=== PATIENT | female | born 1980 | race Caucasian/White ===

== ENCOUNTER 2021-02-16 08:57 | Emergency (ER) | payer SELFPAY ==
--- NOTE | ~2021-02-16 | CT_ITS ---
EXAMINATION: CT brain wo con INDICATION: Sudden onset headache, dizziness, vomiting COMPARISON: None TECHNIQUE: Standard unenhanced head CT. The dose-length product (DLP) was 605.33 mGy-cm. The mA was a djusted according to patient size. Iterative reconstruction technique was employed. FINDINGS: There is no intracranial hemorrhage, acute infarction, or abnormal mass lesion. The ventric les are normal. There is no abnormal mass effect or midline shift. The humphrey-white matter differentiat ion is normal. The basal cisterns are patent. The orbits are normal. There is mild mucosal thickening of the paranasal sinuses. IMPRESSION: 1. No acute intracranial abnormality. Reviewed, dictated and finalized at location A.
[2021-02-16 09:25] VITALS: BP 102/61; PULSE 89; RESP 16; TEMP 36.7; O2SAT 98
--- NOTE | 2021-02-16 10:09 | ED.GENADULT ---
HPI - General Adult General Chief complaint: Headache Stated complaint: migraine Source: patient Mode of arrival: ambulatory History of Present Illness HPI narrative: Yuki is a 41F with a PMH of HTN, HLD, migraine headaches, unknown cardiac arrhythmia,and mitral valve prolapse that presented to the ER with a bilateral pounding headache. It woke her up 2 mornings ago. The pain was maximal upon awakening. it is associated with nausea and vomiting. No hearing or vision changes. No confusion reported. No neck pain reported. No fevers or chills. Related Data Home Medications Medication Instructions Recorded Confirmed amlodipine 5 mg PO DAILY 02/16/21 02/16/21 Allergies Allergy/AdvReac Type Severity Reaction Status Date / Time amoxicillin [From Augmentin] Allergy Mild Hives Verified 02/16/21 09:39 azithromycin [From Zithromax] Allergy Mild Nausea and Verified 02/16/21 09:39 Vomiting clavulanic acid Allergy Mild Hives Verified 02/16/21 09:39 [From Augmentin] sulfamethoxazole Allergy Mild Hives Verified 02/16/21 09:40 [From Bactrim] trimethoprim [From Bactrim] Allergy Mild Hives Verified 02/16/21 09:40 acetaminophen [From Vicodin] AdvReac Mild Nausea and Verified 02/16/21 09:40 Vomiting hydrocodone [From Vicodin] AdvReac Mild Nausea and Verified 02/16/21 09:40 Vomiting Review of Systems Constitutional: Constitutional: Reports no additional constitutional complaints Eyes: Eyes: Reports no additional eye complaints ENT: Reports as per HPI Cardiovascular: Cardiovascular: Reports no additional cardiovascular complaints Respiratory: Respiratory: Reports no additional respiratory complaints Gastrointestinal: Gastrointestinal: Reports as per HPI Genitourinary: Genitourinary: Reports no additional female genitourinary complaints Musculoskeletal: Musculoskeletal: Reports no additional musculoskeletal complaints Integumentary/Breasts: Skin/Breast: Reports system reviewed and no additional complaints, except as docu Neurologic: Reports as per HPI Psychiatric: Psychiatric: Reports no additional psychiatric complaints Endocrine: Endocrine: Reports no additional endocrine complaints Hematologic/Lymphatic: Hematologic/Lymphatic: Reports no additional hematologic/lymphatic complaints Allergic/Immunologic: Allergic/Immunologic: Reports no additional allergic/immunologic complaints PMFSH Social History Social History Gender identity (if verbalized by the patient): Female Exam Const: General: no acute distress and alert Orientation/consciousness: patient oriented x3 Limitations: No altered mental status Other: Was lying in bed with an ice pack on her head HENMT: Head: normal to inspection Eyes: Conjunctivae: conjunctivae normal Pupils: Equal, round and reactive pupils present Neck: Neck: normal visual inspection Chest: Chest palpation & inspection: normal inspection of the chest Resp: Effort & Inspection: normal respiratory effort Auscultation: clear to auscultation bilaterally Cardio: Rate: regular rate Rhythm: regular rhythm Skin: General skin exam: normal color Rashes: no rashes Neuro: General: patient oriented x3, moves all extremities, no meningeal signs, no focal motor deficits and CN's II-XI intact bilaterally Cranial nerves: Yes Nystagmus not present Speech: normal speech Extrem: General: normal to inspection Psych: Appearance: grossly normal Mental Status: mental status grossly normal Course Course Emergency Course: Given the severity and sudden onset ordered CBC and CT. Ordered benadryl, compazine and normal saline EXAMINATION: CT brain wo con INDICATION: Sudden onset headache, dizziness, vomiting COMPARISON: None TECHNIQUE: Standard unenhanced head CT. The dose-length product (DLP) was 605.33 mGy-cm. The mA was adjusted according to patient size. Iterative reconstruction technique was employed. FINDINGS:
[2021-02-16] MEDS: SODIUM CHLORIDE 0.9% IV 1,000 ML 999 ML IV CONT (10:15)
[2021-02-16] MEDS: diphenhydrAMINE HCl INJ 50 MG/ML VIAL IV PUSH (10:18)
[2021-02-16] MEDS: PROCHLORPERAZINE EDISYLATE 10 MG/2 ML VIAL IV PUSH (10:20)
[2021-02-16 10:25] LABS: Basophils Absolute Auto 0.05 K/mm3 (0.00-0.10); Basophils Percent Auto 0.5 % (0.0-1.0); Eosinophils Absolute Auto 0.11 K/mm3 (0.02-0.50); Eosinophils Percent Auto 1.1 % (1.0-6.0); Hematocrit 44.1 % (35.0-49.0); Hemoglobin 14.7 g/dL (12.0-15.0); Immature Granulocyte Absolute 0.03 K/mm3 (0.00-0.00); Immature Granulocyte Percent A 0.3 % (0.0-0.0); Lymphocytes Absolute Auto 1.14 K/mm3 (1.10-4.50); Lymphocytes Percent Auto 11.5 % (18.0-42.0); Mean Corpuscular HGB Conc 33.3 g/dL (32.0-36.0); Mean Corpuscular Hemoglobin 28.9 pg (27.0-31.0); Mean Corpuscular Volume 86.8 fL (78.0-102.0); Mean Platelet Volume 8.5 fl (9.2-11.8); Neutrophils Absolute Auto 8.2 K/mm3 (1.7-7.2); Neutrophils Percent Auto 82.6 % (50.0-70.0); Platelet Count Result 271 K/mm3 (150-420); Red Blood Count 5.08 M/mm3 (4.20-5.40); Red Cell Distribution Width 12.1 % (11.6-14.4); White Blood Count 9.9 K/mm3 (4.8-10.8)
[2021-02-16 10:38] LABS: Alanine Aminotransferase 35 U/L (14-59); Albumin Level 3.7 g/dL (3.4-5.0); Alkaline Phosphatase 79 U/L (46-116); Anion Gap 13 mmol/L (8-16); Aspartate Amino Transferase 13 U/L (15-37); Bilirubin,Total 0.4 mg/dL (0.00-1.00); Blood Urea Nitrogen 10 mg/dL (7-18); Calcium 8.8 mg/dL (8.5-10.1); Carbon Dioxide 24 mmol/L (21-32); Chloride 104 mmol/L (98-108); Estimated CRCL calculation 97 ml/min; Estimated Glomerular Filt Rate > 60; Glucose 111 mg/dL (70-99); Osmolality Calculated 292 mOsm/kg (285-295); Potassium 3.4 mmol/L (3.5-5.1); Sodium 141 mmol/L (136-145); Total Protein 7.4 g/dL (6.4-8.2)
[2021-02-16 11:23] VITALS: BP 135/90; PULSE 109; RESP 16; TEMP 36.8; O2SAT 98
== END 2021-02-16 11:26 | disposition home or self-care (01) ==
PROVIDERS: Emergency Provider Family Medicine; PCP Family Medicine
DX: G43.909 Migraine, unspecified, not intractable, without status migrainosus (principal)
CPT/HCPCS: 36415; 70450; 80053; 85025; 96361; 96374; 96375; 99283; 99284; J0780; J1200; J7030

== ENCOUNTER 2021-06-01 09:45 | Emergency (ER) | payer BC, SELFPAY ==
--- NOTE | ~2021-06-01 | XR_ITS ---
EXAMINATION: XR ankle RT min 3V EXAM DATE: 06/01/2021 12:45 INDICATION: Right ankle pain, twisting injury today. TECHNIQUE: Right ankle frontal, lateral and oblique projections obtained and reviewed. There is no p rior study for comparison. FINDINGS: The right ankle mortise appears intact. There are no acute fractures or dislocations iden tified. There is no subcutaneous gas. There is soft tissue swelling over the ankle laterally. Ther e are no radiopaque foreign bodies. IMPRESSION: 1. Right ankle exam without acute osseous findings. 2. Soft tissue swelling. Reviewed, dictated and finalized at location B. [employer]
[2021-06-01 12:32] VITALS: BP 116/85; PULSE 87; RESP 20; TEMP 36.4; O2SAT 99
[2021-06-01] MEDS: IBUPROFEN 400 MG TABLET 800 MG PO (12:45)
--- NOTE | 2021-06-01 14:01 | ED.LOWEXIN ---
HPI - Extremity Injury (Lower) General Chief Complaint: Extremity Injury, Lower Stated Complaint: Right ankle injury Time Seen by Provider: 06/01/21 10:37 Source: patient and RN notes reviewed Mode of arrival: ambulatory Limitations: no limitations History of Present Illness complaint: ankle injury Type of Injury: inversion Place: home Severity: mild Severity scale (1-10): 3 Relieving factors: nothing Exacerbating factors: nothing Context: walking Associated symptoms: snap/pop sensation Other symptoms: none Related Data Home Medications Medication Instructions Recorded Confirmed amlodipine 5 mg PO DAILY 02/16/21 06/01/21 Allergies Allergy/AdvReac Type Severity Reaction Status Date / Time amoxicillin [From Augmentin] Allergy Mild Hives Verified 02/16/21 09:39 azithromycin [From Zithromax] Allergy Mild Nausea and Verified 02/16/21 09:39 Vomiting clavulanic acid Allergy Mild Hives Verified 02/16/21 09:39 [From Augmentin] sulfamethoxazole Allergy Mild Hives Verified 02/16/21 09:40 [From Bactrim] trimethoprim [From Bactrim] Allergy Mild Hives Verified 02/16/21 09:40 acetaminophen [From Vicodin] AdvReac Mild Nausea and Verified 02/16/21 09:40 Vomiting hydrocodone [From Vicodin] AdvReac Mild Nausea and Verified 02/16/21 09:40 Vomiting Review of Systems Review of Systems: All systems reviewed & are unremarkable except as noted in HPI and below Musculoskeletal: Musculoskeletal: Reports arthralgias PMFSH Past Medical History Medical History Ankle sprain Social History Social History Gender identity (if verbalized by the patient): Female Exam Const: General: no acute distress and alert Nutritional Appearance: well nourished Orientation/consciousness: patient oriented x3 Limitations: no limitations HENMT: Head: normal to inspection Ears: external ears normal and TM's normal bilaterally General nose exam: Normal external nose present and Normal nares present Mouth: Yes lip normal and Yes moist mucous membranes Teeth and gingiva: dentition normal Throat: posterior oropharynx normal Eyes: General: appearance normal, both eyes and all related structures Conjunctivae: conjunctivae normal Pupils: Equal, round and reactive pupils present EOM: EOMs intact bilaterally Neck: Neck: normal visual inspection and no lymphadenopathy Chest: Chest palpation & inspection: normal inspection of the chest Resp: Effort & Inspection: normal respiratory effort Auscultation: clear to auscultation bilaterally Cardio: Rate: regular rate Rhythm: regular rhythm GI: GI Palp: Yes Soft to palpation and No Tenderness to palpation present (GI) Percussion: Yes normal to percussion Auscultation: normal bowel sounds : General: Yes bladder normal to palpation and Yes no CVA tenderness External Female Exam: normal external appearance Back/Spine/Pelvis: Back: no CVA tenderness Skin: General skin exam: normal color Rashes: no rashes Neuro: General: patient oriented x3, moves all extremities, no meningeal signs, no focal motor deficits and CN's II-XI intact bilaterally Extrem: General: no pedal edema Other: minimally swollen lateral right ankle with no acute redness or deformity Psych: Appearance: grossly normal Mental Status: mental status grossly normal Affect: normal affect Attitude: cooperative Thought content: Yes Normal thought content present Course Course Emergency Course: Pt was stable in the ED with less pain Reevaluation(s) Reevaluation #1: VSS. pt had less ankle pain. Date: 06/01/21 Time: 11:45 Vital Signs Vital signs: Vital Signs Temperature 36.4 C 06/01/21 12:32 Pulse Rate 87 06/01/21 12:32 Respiratory Rate 20 06/01/21 12:32 Blood Pressure 116/85 06/01/21 12:32 Pulse Oximetry 99 06/01/21 12:32 Temperature 36.8 C 06/01/21 14:20 Pulse Rate
[2021-06-01 14:20] VITALS: BP 124/92; PULSE 101; RESP 20; TEMP 36.8; O2SAT 97
== END 2021-06-01 14:22 | disposition home or self-care (01) ==
PROVIDERS: Emergency Provider Emergency Medicine; PCP Family Medicine
DX: S93.401A Sprain of unspecified ligament of right ankle, initial encounter (principal)
CPT/HCPCS: 73610; 99283; A9270